=== PATIENT | male | born 1950 | race Caucasian/White ===

== ENCOUNTER 2019-12-17 23:02 | Inpatient (IN) ==
[2019-12-18 00:37] LABS: Hematocrit 39 % (42-52); Hemoglobin 13.3 g/dL (14.0-18.0); Mean Corpuscular HGB Conc 34 g/dL (31-36); Mean Corpuscular Hemoglobin 30 pg (27-31); Mean Corpuscular Volume 88 fL (80-94); Mean Platelet Volume 7.5 fL (7.4-10.4); Platelet Count 424 10^3/uL (150-450); Red Blood Count 4.38 10^6 /uL (4.18-5.48); Red Cell Distribution Width 15 % (10-15); White Blood Count 14.3 10^3/uL (3.5-10.8)
[2019-12-18 00:40] LABS: ABS Basophils 0.1 10^3/ul (0-0.2); ABS Monocytes 2.6 10^3/ul (0-0.8); Eosinophil % 0.2 %; Lymphocyte % 13.9 %
[2019-12-18 00:52] LABS: Albumin 3.1 g/dL (3.2-5.2); Albumin/Globulin Ratio 0.9 (1-3); BUN/Creatinine Ratio 16.9 (8-20); Calcium 8.6 mg/dL (8.6-10.3); EGFR African American 112.2 (>60); EGFR Non-African American 92.7 (>60); Globulin 3.4 g/dL (2-4); Potassium 3.9 mmol/L (3.5-5.0); Total Bilirubin 1.1 mg/dL (0.2-1.0); Total Protein 6.5 g/dL (6.4-8.9)
[2019-12-18] MEDS ORDERED: Iohexol 350 (CONTRAST) 500 ML MDV IV ONE (00:52)
[2019-12-18 00:53] LABS: INR 2.77 (0.82-1.09); Troponin I 0.01 ng/mL (<0.03)
[2019-12-18] MEDS ORDERED: Enoxaparin 150 MG/ML SYR(*) SUBCUT SCH (02:00)
[2019-12-18 02:39] LABS: Hematocrit 39 % (42-52); Hemoglobin 13.3 g/dL (14.0-18.0); Mean Corpuscular HGB Conc 34 g/dL (31-36); Mean Corpuscular Hemoglobin 31 pg (27-31); Mean Corpuscular Volume 89 fL (80-94); Mean Platelet Volume 7.2 fL (7.4-10.4); Platelet Count 424 10^3/uL (150-450); Red Blood Count 4.38 10^6 /uL (4.18-5.48); Red Cell Distribution Width 15 % (10-15); White Blood Count 15.2 10^3/uL (3.5-10.8)
[2019-12-18 02:56] LABS: EGFR African American 103.5 (>60); EGFR Non-African American 85.5 (>60)
[2019-12-18] MEDS ORDERED: Heparin 5000 UNITS/ML VIAL(*) 1 ml vial IV SCH (03:00)
[2019-12-18] MEDS: Heparin DRIP 25,000 UNITS(*) 25,000 UNITS/500 ML BAG IV SCH (03:04)
[2019-12-18 03:38] LABS: ABS Basophils 0.1 10^3/ul (0-0.2); ABS Lymphocytes 2.2 10^3/ul (1.0-4.8); ABS Monocytes 2.8 10^3/ul (0-0.8); Eosinophil % 0.2 %; Lymphocyte % 14.6 %
[2019-12-18] MEDS ORDERED: NS 0.9% 1000 ml BAG 1,000 ML IV SCH ×2 (04:00→14:45)
[2019-12-18] MEDS ORDERED: Phytonadione IV (Adult) 10 MG in NS 0.9% 50 ML 50 ML IV ONE (11:30)
[2019-12-18] MEDS ORDERED: NS 0.9% 1000 ml BAG 1,000 ML IV ONE (14:32)
[2019-12-18] MEDS ORDERED: Piperacillin/Tazobac ADVAN(*) 3.375 GM in NS 0.9% 100 ml BAG 100 ML IVPB ONE (14:32)
[2019-12-18] MEDS ORDERED: Zosyn per Pharmacy NOTE FOLLOW UP SCH (15:00)
[2019-12-18 17:47] LABS: Urine Appearance Cloudy; Urine Bilirubin Negative (Negative); Urine Blood Negative (Negative); Urine Color Amber; Urine Glucose Negative (Negative); Urine Ketones Negative (Negative); Urine Nitrite Negative (Negative); Urine Protein 1+(30 mg/dL) (Negative); Urine Specific Gravity 1.033 (1.010-1.030); Urine Urobilinogen Positive (Negative)
[2019-12-18 17:53] LABS: Urine Bacteria Absent (Absent); Urine Red Blood Cell Absent (Absent); Urine Squamous Epithelial Cell Present (Absent); Urine White Blood Cell Absent (Absent)
[2019-12-18] MEDS: ZOSYN 3.375 GM Q8H per EXTENDED INFUSION IV SCH (21:28)
[2019-12-19 05:34] LABS: Hematocrit 33 % (42-52); Hemoglobin 11.3 g/dL (14.0-18.0); Mean Corpuscular HGB Conc 34 g/dL (31-36); Mean Corpuscular Hemoglobin 30 pg (27-31); Mean Corpuscular Volume 89 fL (80-94); Mean Platelet Volume 7.4 fL (7.4-10.4); Platelet Count 402 10^3/uL (150-450); Red Blood Count 3.73 10^6 /uL (4.18-5.48); Red Cell Distribution Width 15 % (10-15); White Blood Count 15.6 10^3/uL (3.5-10.8)
[2019-12-19 05:44] LABS: ABS Basophils 0.2 10^3/ul (0-0.2); ABS Eosinophils 0.1 10^3/ul (0-0.6); ABS Lymphocytes 2.1 10^3/ul (1.0-4.8); ABS Monocytes 2.6 10^3/ul (0-0.8); Eosinophil % 0.4 %; Lymphocyte % 13.6 %; Nucleated Red Blood Cells % 0.1
[2019-12-19 05:52] LABS: BUN/Creatinine Ratio 15.9 (8-20); Calcium 7.9 mg/dL (8.6-10.3); EGFR African American 154.2 (>60); EGFR Non-African American 127.4 (>60); Magnesium 1.5 mg/dL (1.9-2.7); Potassium 3.7 mmol/L (3.5-5.0)
[2019-12-19] MEDS: ZOSYN 3.375 GM Q8H per EXTENDED INFUSION IV SCH ×3 (06:00→22:37)
[2019-12-19] MEDS: Heparin DRIP 25,000 UNITS(*) 25,000 UNITS/500 ML BAG IV SCH (06:11)
[2019-12-19] MEDS ORDERED: Magnesium Sulfate IV 3 GM in NS 0.9% 100 ml BAG 100 ML IVPB ONE (09:00)
[2019-12-19 09:50] LABS: INR 1.28 (0.82-1.09)
[2019-12-19] MEDS ORDERED: Potassium Phosphate IV 10 MMOLE in NS 0.9% 250 ml 250 ML IVPB ONE (11:06)
[2019-12-19] MEDS: Enoxaparin 150 MG/ML SYR(*) SUBCUT SCH (17:33)
[2019-12-19] MEDS ORDERED: Albuterol 2.5mg/3 ml (0.083%) NEB.SOLN INH PRN (22:59)
[2019-12-20] MEDS: ZOSYN 3.375 GM Q8H per EXTENDED INFUSION IV SCH ×3 (05:04→20:52)
[2019-12-20 08:38] LABS: Hematocrit 34 % (42-52); Hemoglobin 11.6 g/dL (14.0-18.0); Mean Corpuscular HGB Conc 35 g/dL (31-36); Mean Corpuscular Hemoglobin 31 pg (27-31); Mean Corpuscular Volume 88 fL (80-94); Mean Platelet Volume 7.7 fL (7.4-10.4); Platelet Count 482 10^3/uL (150-450); Red Cell Distribution Width 14 % (10-15); White Blood Count 14.8 10^3/uL (3.5-10.8)
[2019-12-20 08:45] LABS: BUN/Creatinine Ratio 11.4 (8-20); Calcium 7.9 mg/dL (8.6-10.3); EGFR African American 136.1 (>60); EGFR Non-African American 112.5 (>60); Magnesium 1.9 mg/dL (1.9-2.7); Potassium 3.7 mmol/L (3.5-5.0)
[2019-12-20] MEDS: Enoxaparin 150 MG/ML SYR(*) SUBCUT SCH ×3 (09:02→20:53)
[2019-12-20 09:22] LABS: ABS Basophils 0.2 10^3/ul (0-0.2); ABS Eosinophils 0.2 10^3/ul (0-0.6); ABS Lymphocytes 1.5 10^3/ul (1.0-4.8); ABS Monocytes 2.5 10^3/ul (0-0.8); Eosinophil % 1.1 %; Lymphocyte % 9.8 %; Nucleated Red Blood Cells % 0.1
[2019-12-20 10:07] LABS: C Reactive Protein 228.95 mg/L (<8.01)
[2019-12-20] MEDS: GuaiFENesin DM 100 mg/10 mg in 5 ML UDC PO PRN ×2 (17:32→23:29)
[2019-12-21] MEDS: ZOSYN 3.375 GM Q8H per EXTENDED INFUSION IV SCH ×2 (05:10→13:19)
[2019-12-21] MEDS: GuaiFENesin DM 100 mg/10 mg in 5 ML UDC PO PRN ×3 (05:15→20:01)
[2019-12-21] MEDS: Enoxaparin 150 MG/ML SYR(*) SUBCUT SCH ×2 (09:17→20:02)
[2019-12-22] MEDS: GuaiFENesin DM 100 mg/10 mg in 5 ML UDC PO PRN ×3 (01:37→20:40)
[2019-12-22] MEDS: Enoxaparin 150 MG/ML SYR(*) SUBCUT SCH ×2 (08:35→20:41)
[2019-12-23 06:47] LABS: Hematocrit 33 % (42-52); Hemoglobin 11.3 g/dL (14.0-18.0); Mean Corpuscular HGB Conc 35 g/dL (31-36); Mean Corpuscular Hemoglobin 31 pg (27-31); Mean Corpuscular Volume 88 fL (80-94); Mean Platelet Volume 7.4 fL (7.4-10.4); Platelet Count 737 10^3/uL (150-450); Red Cell Distribution Width 15 % (10-15); White Blood Count 13.3 10^3/uL (3.5-10.8)
[2019-12-23 07:05] LABS: Calcium 6.5 mg/dL (8.6-10.3); EGFR African American 259.6 (>60); EGFR Non-African American 214.6 (>60)
[2019-12-23 07:32] LABS: Potassium 4.7 mmol/L (3.5-5.0)
[2019-12-23] MEDS: Enoxaparin 150 MG/ML SYR(*) SUBCUT SCH ×2 (09:59→20:28)
[2019-12-23] MEDS: GuaiFENesin DM 100 mg/10 mg in 5 ML UDC PO PRN ×3 (10:03→20:26)
[2019-12-23 10:45] LABS: Polychromasia 1+
[2019-12-23 10:46] LABS: ABS Basophils 0.2 10^3/ul (0-0.2); ABS Eosinophils 0.1 10^3/ul (0-0.6); Eosinophil % 0.9 %; Lymphocyte % 15.2 %; Nucleated Red Blood Cells % 0.1
[2019-12-24] MEDS: Enoxaparin 150 MG/ML SYR(*) SUBCUT SCH ×2 (08:10→20:47)
[2019-12-24 15:25] LABS: Bartonella Henselae IgG <1:128 titer (<1:128); Bartonella Henselae IgM <1:20 titer (<1:20); Bartonella Quintana IgG <1:128 titer (<1:128); Bartonella Quintana IgM <1:20 titer (<1:20)
[2019-12-24] MEDS: GuaiFENesin DM 100 mg/10 mg in 5 ML UDC PO PRN ×2 (15:44→20:46)
[2019-12-25 15:51] VITALS: BP 131/78
[2019-12-25 23:10] LABS: Beta 2 Microglobulin 2.89 mcg/mL
[2019-12-26 00:09] LABS: Anaplasma phagocytophilum Negative (Negative); B. miyamotoi PCR, B Negative (Negative); Babesia divergens/MO-1 Negative (Negative); Babesia ducani Negative (Negative); Ehrlichia chaffeensis Negative (Negative); Ehrlichia ewingii/canis Negative (Negative); Ehrlichia muris eauclairensis Negative (Negative)
[2019-12-26 16:37] LABS: Albumin 1.9 g/dL (3.4-4.7); Albumin/Globulin Ratio 0.54; Total Protein(PEP) 5.4 g/dL (6.3 - 7.9)
[2020-01-02 18:15] LABS: BLYM Source Left inguinal mass; BLYM Tissue ID CN20-610
[2020-01-03 17:08] LABS: BLYM Result Summary Negative; BLYM Source Left inguinal mass; BLYM Tissue ID S20-6100
== END 2019-12-25 19:00 | disposition home or self-care (01) | DRG 176 ==
LOC: ED 23:02 → MEDTELE 12-18 04:15
PROVIDERS: ADMIT Internal Medicine; ATTEND Internal Medicine